=== PATIENT | female | born 1950 | race Caucasian/White ===

== ENCOUNTER 2022-09-25 08:53 | Day surgery (SDC) | payer MEDICARE, SELFPAY ==
[2022-09-21 16:27] VITALS: BMI 24.7
[2022-09-25 09:32] VITALS: BP 132/73; PULSE 81; RESP 20; TEMP 36.4; O2SAT 92
[2022-09-25 10:38] VITALS: BP 132/73; PULSE 81; RESP 20; TEMP 36.4; O2SAT 92
== END 2022-09-25 10:38 | disposition home or self-care (01) ==
LOC: OUTP 08:58
PROVIDERS: PCP Pediatrics; Visit Provider Ophthalmology
PROC: (CPT 66821; principal; 2022-09-25 09:30)
DX: H26.40 Unspecified secondary cataract (principal); Z72.0 Tobacco use; Z79.899 Other long term (current) drug therapy
CPT/HCPCS: 66821